=== PATIENT | female | born 1945 | race Caucasian/White ===

== ENCOUNTER 2023-07-01 05:31 | Emergency (ER) | payer OTHER, MEDICARE ==
[2023-07-01] MEDS ORDERED: Acetaminophen 500 MG TAB ONE (05:50)
== END 2023-07-01 06:40 | disposition home or self-care (01) ==
LOC: ERS 05:31
DX: M25.552 Pain in left hip (principal); I10 Essential (primary) hypertension; E03.9 Hypothyroidism, unspecified; Z55.6 Problems related to health literacy; Z79.899 Other long term (current) drug therapy; Z79.82 Long term (current) use of aspirin; W06.XXXA Fall from bed, initial encounter
CPT/HCPCS: 72170